=== PATIENT | female | born 1960 | race American Indian/Alaskan Native ===

== ENCOUNTER → 2016-10-09 | Outpatient (CLI) | payer BC, OTHER ==
--- NOTE | 2016-10-09 16:03 | CR ---
EXAMINATION: Left knee HISTORY: Pain COMPARISON: 12/24/2013 TECHNIQUE: 3 views FINDINGS/IMPRESSION: Left total knee hardware is demonstrated in stable position and alignment. No f racture or acute osseous abnormalities noted. Bone mineralization otherwise appears normal.
== END ==
LOC: MW.CHORTHO 13:46
PROVIDERS: ATTEND Physician Assistant
DX: M25.562 Pain in left knee (principal); Z96.7 Presence of other bone and tendon implants
CPT/HCPCS: 73562-26-LT; 73562-LT

== ENCOUNTER → 2016-10-16 | Outpatient (CLI) | payer BC, OTHER | END | disposition home or self-care (01) | LOC: MW.CHORTHO 14:36 | PROVIDERS: ATTEND Physician Assistant | DX: T84.84XA Pain due to internal orthopedic prosthetic devices, implants and grafts, initial encounter (principal); Z96.659 Presence of unspecified artificial knee joint | CPT/HCPCS: 36415; 85025; 85652; 86140; 87070; 87205; 89050; 89060 ==

== ENCOUNTER 2018-10-08 09:47 | Day surgery (SDC) | payer BC, OTHER ==
[~2018-10-08 09:47] MED LIST: Acetaminophen/HYDROcodone 325-5 MG Tab PO PRN; Lactated Ringers 1,000 ML IV SCH; Lidocaine 1% 20 ML MDV ONE; ceFAZolin 2 GM in Premix Bag 1 BAG IV SCH
--- NOTE | 2018-10-08 11:22 | PCM.PREANE ---
Preanesthetic Assessment - Anesthesia/Transfusion/Family Hx Anesthesia History: Prior Anesthesia Without Reaction Other Type of Anesthesia Reaction Comment: Denies any known problems Family History of Anesthesia Reaction: No Transfusion History: No Prior Transfusion(s) - Review of Systems General: No Symptoms Pulmonary: No Symptoms Cardiovascular: No Symptoms Gastrointestinal: No Symptoms Neurological: No Symptoms Other: Reports: None - Physical Assessment NPO Status Date: 10/07/18 Height: 5 ft 5 in Weight: 83.915 kg ASA Class: 2 Mental Status: Alert & Oriented x3 Airway Class: Mallampati = 2 Dentition: Reports: Normal Dentition ROM/Head Extension: Full Lungs: Clear to Auscultation, Normal Respiratory Effort Cardiovascular: Regular Rate, Regular Rhythm - Allergies Allergies/Adverse Reactions: Allergies Allergy/AdvReac Type Severity Reaction Status Date / Time aspirin Allergy Rash Verified 10/02/18 12:56 ibuprofen Allergy Rash Verified 10/02/18 12:56 latex Allergy Rash Verified 10/02/18 12:56 - Blood Blood Available: No - Anesthesia Plan Pre-Op Medication Ordered: None - Acknowledgements Anesthesia Type Planned: General Anesthesia Pt an Appropriate Candidate for the Planned Anesthesia: Yes Alternatives and Risks of Anesthesia Discussed w Pt/Guardian: Yes Pt/Guardian Understands and Agrees with Anesthesia Plan: Yes Additional Comments: PMH: gerd, smoker PLAN: ga-lma PreAnesthesia Questionnaire HEENT History: Reports: None Cardiovascular History: Reports: None Respiratory History: Reports: None Gastrointestinal History: Reports: GERD Genitourinary History: Reports: None 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: Musculoskeletal History: Reports: Osteoarthritis Neurological History: Reports: None Psychiatric History: Reports: None Endocrine/Metabolic History: Reports: None Hematologic History: Reports: None Immunologic History: Reports: None Oncologic (Cancer) History: Reports: None Dermatologic History: Reports: None - Past Surgical History Head Surgeries/Procedures: Reports: None HEENT Surgical History: Reports: LASIK, Tonsillectomy Cardiovascular Surgical History: Reports: None Respiratory Surgical History: Reports: None GI Surgical History: Reports: Cholecystectomy Female Surgical History: Reports: Breast Biopsy, Cystectomy, Hysterectomy, Tubal Ligation, Other (See Below) Other Female Surgeries/Procedures: bladder surgery Endocrine Surgical History: Reports: None Neurological Surgical History: Reports: None Musculoskeletal Surgical History: Reports: Arthroscopic Knee, Knee Replacement, Shoulder Surgery, Other (See Below) Other Musculoskeletal Surgeries/Procedures:: bilateral bunionectomy, left knee scope, partial lt knee arthroplasty, left total knee arthroplasty, slick shoulder surgery Oncologic Surgical History: Reports: None - SUBSTANCE USE Smoking Status *Q: Current Every Day Smoker Tobacco Use Within Last Twelve Months: Cigarettes Recreational Drug Use History: No - HOME MEDS Home Medications: Home Meds Estradiol 2 mg PO DAILY 04/23/16 [History] Omeprazole 20 mg PO DAILY 04/23/16 [History] - CURRENT (IN HOUSE) MEDS Current Meds: Current Medications Hydrocodone Bitart/Acetaminophen ([place] 325-5 Mg) 1 - 2 tab PO Q4H PRN PRN Reason: Pain Cefazolin Sodium/Dextrose 2 gm (/ Premix) 50 mls @ 100 mls/hr IV ONCALL ROGER Lactated Ringer's (Ringers, Lactated) 1,000 mls @ 100 mls/hr IV ASDIRECTED ROGER Discontinued Medications Lidocaine HCl (Xylocaine 1%) Confirm Administered Dose 20 ml .ROUTE .STK-MED ONE Stop: 10/08/18 07:22
[2018-10-08] MEDS ORDERED: Dexamethasone 4 MG/ML 5 ML MDV ONE (11:29)
[2018-10-08] MEDS ORDERED: Ondansetron 4 MG/2 ML SDV ONE (11:29)
[2018-10-08] MEDS ORDERED: fentaNYL 250 MCG/5 ML SDV ONE (11:29)
[2018-10-08] MEDS ORDERED: Midazolam 1 MG/ML 2 ML SDV ONE (11:29)
[2018-10-08] MEDS ORDERED: Propofol 200 MG/20 ML SDV ONE (11:29)
[2018-10-08] MEDS ORDERED: ceFAZolin/Dextrose,Iso-Osmotic 2 GM/50 ML Duplex Bag IV ONE (11:31)
[2018-10-08] MEDS ORDERED: Rocuronium 100 MG/10 ML Syringe ONE (12:10)
[2018-10-08] MEDS ORDERED: fentaNYL 100 MCG/2 ML SDV IVPUSH PRN (13:31)
--- NOTE | 2018-10-08 13:58 | PCM.OPNOTE ---
- General Post-Op/Procedure Note Date of Surgery/Procedure: 10/08/18 Operative Procedure(s): R knee scope with PMM/PLM Post-Op Diagnosis: R knee med meniscus tear, discoid lateral meniscus Anesthesia Technique: General LMA Primary Surgeon: Liliana Gray Ocean Freight Agent: Annalisa Trimble in mLs: 5 Condition: Good Free Text/Narrative:: #[id number]
--- NOTE | 2018-10-08 14:34 | PCM.POSTAN ---
POST ANESTHESIA ASSESSMENT - MENTAL STATUS Mental Status: Alert, Oriented - RESPIRATORY Respiratory Status: Respiratory Rate WNL, Airway Patent, O2 Saturation Stable - CARDIOVASCULAR CV Status: Pulse Rate WNL, Blood Pressure Stable - GASTROINTESTINAL GI Status: No Symptoms - PAIN Pain Score: 0 - POST OP HYDRATION Hydration Status: Adequate & Stable
--- NOTE | 2018-10-08 14:48 | PCM48HPAN ---
Post Anesthesia Note - EVALUATION WITHIN 48HRS OF ANESTHETIC Vital Signs in Normal Range: Yes Patient Participated in Evaluation: Yes Respiratory Function Stable: Yes Airway Patent: Yes Cardiovascular Function Stable: Yes Hydration Status Stable: Yes Pain Control Satisfactory: Yes Nausea and Vomiting Control Satisfactory: Yes Mental Status Recovered: Yes Resp Rate: 11
[2018-10-08 16:24] VITALS: BP 123/75
--- NOTE | 2018-10-08 20:31 | OR ---
SURGEON: Liliana Gray MD DATE OF PROCEDURE: 10/08/2018 PREOPERATIVE DIAGNOSIS: Right knee medial meniscus tear. POSTOPERATIVE DIAGNOSES: 1. Right knee medial meniscus tear. 2. Right knee discoid lateral meniscus. 3. Degenerative joint disease, left knee. PROCEDURE: Right knee arthroscopy with partial medial and lateral meniscectomy. OILSEED MEAT PRESSER: MOOK Sim. ANESTHESIA: General. ESTIMATED BLOOD LOSS: 5 mL. TOURNIQUET TIME: See nursing record. COMPLICATIONS: None. DVT PROPHYLAXIS: Not indicated. IMPLANTS USED: None. BRIEF HISTORY: Lily is a 58-year-old female who has had complaint of progressive right knee pain. She had failed conservative treatment. Due to her lack of response to conservative treatment, I did recommend surgical intervention. The risks and goals of procedure were discussed with the patient and were documented preoperatively. She agreed to proceed. DESCRIPTION OF PROCEDURE: The patient was properly identified and brought to the operating room. She was transferred from the OR cart and placed on the operating table in supine position. General anesthesia was administered. After adequate anesthesia was obtained, a well-padded tourniquet was applied to the right lower extremity. The right lower extremity was then prepped in standard fashion using ChloraPrep solution. It was then sterilely draped. A time-out was performed to ensure correct site and procedure. Preoperative antibiotics were given. The surgical site had been marked preoperatively. An Esmarch was used to exsanguinate the right lower extremity and the tourniquet was inflated to 250 mmHg. A lateral portal arthrotomy was established. Blunt trocar and cannula were introduced into the suprapatellar pouch. Camera, inflow, and outflow were assembled. No significant synovitis was noted. The patellofemoral joint was visualized. Minor degenerative changes were noted along the undersurface of the patella. The trochlea did not show significant degenerative findings. There was some fat pad impingement present with flexion and extension of the knee. The patella appeared to track centrally. I then extended down the lateral gutter. No loose bodies were identified. She did have quite a bit of redundant fatty tissue and it was difficult to initially go down the medial gutter. I then entered the medial compartment. A medial portal arthrotomy was established. A blunt probe was inserted. She was found to have a large posterior horn tear of the meniscus. Using a combination of biters and shaver, this was resected back to a stable remnant. The remainder was probed and found to be stable. Joint surfaces showed diffuse grade 2 to grade 3 degenerative findings along the medial femoral condyle and medial tibial plateau. I then entered the notch. Both the ACL and PCL were visualized and probed and found to be intact. I then entered the lateral compartment. She was found to have a large discoid meniscus. This was probed and no tears were noted. I elected to proceed with saucerization of the meniscus. Using a combination of biters and shaver, saucerization of the lateral meniscus was performed. The joint surfaces showed no significant degenerative findings. I then returned to the patellofemoral joint. A portion of the fat pad was excised and no further impingement was noted. By removing a portion of the fat pad, I was able to visualize the medial gutter and no loose bodies were identified. The instruments were then removed from the knee. The portal sites were closed with 3-0 nylon. 1% Lidocaine was injected along the portal tracts. Xeroform gauze was placed over the wound and a bulky dressing was applied. The tourniquet was then deflated. She was awakened from her anesthetic and transferred back to the operating room cart. She was brought to recovery room in stable condition. All needle and sponge counts were correct. FUNMILAYO / HANNAH /[id number]
== END 2018-10-08 16:00 | disposition home or self-care (01) ==
LOC: MW.SDS 09:47
PROVIDERS: ATTEND Orthopaedic Surgery
DX: S83.231A Complex tear of medial meniscus, current injury, right knee, initial encounter (principal); M23.300 Other meniscus derangements, unspecified lateral meniscus, right knee; M25.861 Other specified joint disorders, right knee; M17.11 Unilateral primary osteoarthritis, right knee; M25.461 Effusion, right knee; K21.9 Gastro-esophageal reflux disease without esophagitis; K64.9 Unspecified hemorrhoids; F17.210 Nicotine dependence, cigarettes, uncomplicated; X58.XXXA Exposure to other specified factors, initial encounter; Z88.6 Allergy status to analgesic agent; Z91.040 Latex allergy status; Z79.1 Long term (current) use of non-steroidal anti-inflammatories (NSAID); Z79.899 Other long term (current) drug therapy
CPT/HCPCS: 29880; 88304; J0131; J0330; J0690; J1100; J2001; J2250; J2405; J2704; J3010; J7120; 01400

== ENCOUNTER 2019-01-12 06:30 | Day surgery (SDC) | payer BC, OTHER ==
[~2019-01-12 06:30] MED LIST changes: -Acetaminophen/HYDROcodone 325-5 MG Tab PO PRN; -Lidocaine 1% 20 ML MDV ONE; -ceFAZolin 2 GM in Premix Bag 1 BAG IV SCH
--- NOTE | 2019-01-12 07:02 | PCM.PREANE ---
Preanesthetic Assessment - Anesthesia/Transfusion/Family Hx Anesthesia History: Prior Anesthesia Without Reaction Other Type of Anesthesia Reaction Comment: Denies any known problems Family History of Anesthesia Reaction: No Transfusion History: No Prior Transfusion(s) - Review of Systems General: No Symptoms Pulmonary: No Symptoms Cardiovascular: No Symptoms Gastrointestinal: No Symptoms Neurological: No Symptoms Other: Reports: None - Physical Assessment NPO Status Date: 01/11/19 Height: 5 ft 5 in Weight: 81.647 kg ASA Class: 2 Mental Status: Alert & Oriented x3 Airway Class: Mallampati = 2 Dentition: Reports: Normal Dentition ROM/Head Extension: Full Lungs: Clear to Auscultation, Normal Respiratory Effort Cardiovascular: Regular Rate, Regular Rhythm - Allergies Allergies/Adverse Reactions: Allergies Allergy/AdvReac Type Severity Reaction Status Date / Time aspirin Allergy Rash Verified 01/05/19 14:34 ibuprofen Allergy Rash Verified 01/05/19 14:34 latex Allergy Rash Verified 01/05/19 14:34 - Blood Blood Available: No - Anesthesia Plan Pre-Op Medication Ordered: None - Acknowledgements Anesthesia Type Planned: General Anesthesia Pt an Appropriate Candidate for the Planned Anesthesia: Yes Alternatives and Risks of Anesthesia Discussed w Pt/Guardian: Yes Pt/Guardian Understands and Agrees with Anesthesia Plan: Yes Additional Comments: PMH: gerd, smoker, sridhar hives from Ibuprofen, but has been able to take toradol and naprosyn without problem PLAN: ga/lma PreAnesthesia Questionnaire - Past Health History Medical/Surgical History: Denies Medical/Surgical History HEENT History: Reports: None Cardiovascular History: Reports: None Respiratory History: Reports: None Gastrointestinal History: Reports: GERD Genitourinary History: Reports: None 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: Musculoskeletal History: Reports: Osteoarthritis Neurological History: Reports: None Psychiatric History: Reports: None Endocrine/Metabolic History: Reports: None Hematologic History: Reports: None Immunologic History: Reports: None Oncologic (Cancer) History: Reports: None Dermatologic History: Reports: None - Past Surgical History Head Surgeries/Procedures: Reports: None HEENT Surgical History: Reports: LASIK, Tonsillectomy Cardiovascular Surgical History: Reports: None Respiratory Surgical History: Reports: None GI Surgical History: Reports: Cholecystectomy Female Surgical History: Reports: Breast Biopsy, Cystectomy, Hysterectomy, Tubal Ligation, Other (See Below) Other Female Surgeries/Procedures: bladder surgery Endocrine Surgical History: Reports: None Neurological Surgical History: Reports: None Musculoskeletal Surgical History: Reports: Arthroscopic Knee, Knee Replacement, Shoulder Surgery, Other (See Below) Other Musculoskeletal Surgeries/Procedures:: bilateral bunionectomy, left knee scope, partial lt knee arthroplasty, left total knee arthroplasty, slick shoulder surgery Oncologic Surgical History: Reports: None - SUBSTANCE USE Smoking Status *Q: Current Every Day Smoker Tobacco Use Within Last Twelve Months: Cigarettes Recreational Drug Use History: No - HOME MEDS Home Medications: Home Meds Estradiol 2 mg PO DAILY 04/23/16 [History] Omeprazole 20 mg PO DAILY 04/23/16 [History] Diclofenac Sodium 5 mg PO ASDIRECTED PRN 01/05/19 [History] Meloxicam 15 mg PO DAILY 01/05/19 [History] - CURRENT (IN HOUSE) MEDS Current Meds: Current Medications Hydrocodone Bitart/Acetaminophen ([place] 325-5 Mg) 1 - 2 tab PO Q4H PRN PRN Reason: Pain Cefazolin Sodium/Dextrose 2 gm (/ Premix) 50 mls @ 100 mls/hr IV ONCALL ROGER Lactated Ringer's (Ringers, Lactated) 1,000 mls @ 100 mls/hr IV ASDIRECTED [facility]
[2019-01-12] MEDS ORDERED: Lidocaine 2% 5 ML SDV ONE (07:16)
[2019-01-12] MEDS ORDERED: Ketorolac 30 MG/ML SDV ONE (07:16)
[2019-01-12] MEDS ORDERED: Ondansetron 4 MG/2 ML SDV ONE (07:16)
[2019-01-12] MEDS ORDERED: Glycopyrrolate 0.2 MG/ML SDV ONE (07:16)
[2019-01-12] MEDS ORDERED: Dexamethasone 4 MG/ML 5 ML MDV ONE (07:16)
[2019-01-12] MEDS ORDERED: ceFAZolin 1 GM Vial ONE (07:16)
[2019-01-12] MEDS ORDERED: Sodium Chloride 0.9% 20 ML ONE (07:16)
[2019-01-12] MEDS ORDERED: Propofol 200 MG/20 ML SDV ONE (07:20)
[2019-01-12] MEDS ORDERED: fentaNYL 100 MCG/2 ML SDV ONE (07:20)
[2019-01-12] MEDS ORDERED: Midazolam 1 MG/ML 2 ML SDV ONE (07:20)
[2019-01-12] MEDS ORDERED: Lidocaine 1% 20 ML MDV ONE (07:22)
[2019-01-12] MEDS ORDERED: ceFAZolin 2 GM in Premix Bag 1 BAG IV SCH (08:00)
--- NOTE | 2019-01-12 08:58 | PCM.OPNOTE ---
- General Post-Op/Procedure Note Date of Surgery/Procedure: 01/12/19 Operative Procedure(s): R knee arthroscopy with PLM/PMM and microfracture medial femoral condyle Post-Op Diagnosis: R knee med/lat meniscus tear, djd R knee Anesthesia Technique: General LMA Primary Surgeon: Liliana Gray Corset Fitter: Lilian John in mLs: 5 Condition: Good Free Text/Narrative:: #[id number]
[2019-01-12] MEDS ORDERED: HYDROmorphone 2 MG/ML SDV IVPUSH ONE (09:22)
[2019-01-12] MEDS ORDERED: HYDROmorphone 2 MG/ML Syringe ONE (09:26)
--- NOTE | 2019-01-12 09:47 | PCM.POSTAN ---
POST ANESTHESIA ASSESSMENT - MENTAL STATUS Mental Status: Alert, Oriented - VITAL SIGNS Pulse Rate: 67 SaO2: 96 Resp Rate: 13 Blood Pressure: 109/63 - RESPIRATORY Respiratory Status: Respiratory Rate WNL, Airway Patent, O2 Saturation Stable - CARDIOVASCULAR CV Status: Pulse Rate WNL, Blood Pressure Stable - GASTROINTESTINAL GI Status: No Symptoms - PAIN Pain Score: 0 - POST OP HYDRATION Hydration Status: Adequate & Stable
[2019-01-12] MEDS ORDERED: Acetaminophen/HYDROcodone 325-5 MG Tab PO PRN (10:00)
[2019-01-12 11:49] VITALS: BP 109/63
--- NOTE | 2019-01-12 11:49 | PCM48HPAN ---
Post Anesthesia Note - EVALUATION WITHIN 48HRS OF ANESTHETIC Vital Signs in Normal Range: Yes Patient Participated in Evaluation: Yes Respiratory Function Stable: Yes Airway Patent: Yes Cardiovascular Function Stable: Yes Hydration Status Stable: Yes Pain Control Satisfactory: Yes Nausea and Vomiting Control Satisfactory: Yes Mental Status Recovered: Yes Pulse Rate: 67 Resp Rate: 14 Blood Pressure: 109/63
--- NOTE | 2019-01-12 13:40 | OR ---
SURGEON: Liliana Gray MD DATE OF PROCEDURE: 01/12/2019 PREOPERATIVE DIAGNOSES: 1. Right knee medial meniscus tear. 2. Osteoarthritis, right knee. POSTOPERATIVE DIAGNOSES: 1. Right knee medial meniscus tear. 2. Osteoarthritis, right knee. 3. Right knee lateral meniscus tear. PROCEDURES: Right knee arthroscopy with partial medial and lateral meniscectomies and microfracture of the medial femoral condyle. PRIMARY SURGEON: Liliana Gray MD. ROLL SKINNER: Lilian John PA-C. ANESTHESIA: General. ESTIMATED BLOOD LOSS: 5 mL. TOURNIQUET TIME: 19 minutes. COMPLICATIONS: None. DVT PROPHYLAXIS: Not indicated. IMPLANTS USED: None. BRIEF HISTORY: Lily is a 58-year-old female, who has had continued difficulties with her right knee. She has previously undergone a right knee arthroscopy. She did well following the surgery. She recently had an episode where she developed increased pain in the right knee. We did then try a diagnostic/therapeutic injection, which did give her good temporary relief. Her pain has since recurred. Due to her lack of response to conservative treatment, I did recommend surgical intervention. The risks and goals of procedure were discussed with the patient and were documented preoperatively. She agreed to proceed. DESCRIPTION OF PROCEDURE: The patient was properly identified and brought to the operating room. She was transferred from the OR cart and placed on the operating room table in supine position. General anesthesia was administered. After adequate anesthesia was obtained, a well-padded tourniquet was applied to the right lower extremity. The right lower extremity was then prepped in standard fashion using ChloraPrep solution. It was then sterilely draped. A time-out was performed to ensure correct site and procedure. Preoperative antibiotics were given. Surgical site had been marked preoperatively. An Esmarch was used to exsanguinate the right lower extremity and the tourniquet was inflated to 250 mmHg. A lateral portal arthrotomy was made through the site of the previous incision. Blunt trocar and cannula were introduced into the suprapatellar pouch. Camera, inflow, and outflow were assembled. No significant synovitis was noted. The patellofemoral joint was visualized. Minor degenerative changes were noted. The patella appeared to track centrally. I then extended down the lateral and medial gutter. No loose bodies were identified. I then entered the medial compartment. A medial portal arthrotomy was established through the site of the previous incision. A blunt probe was inserted. The meniscus was probed. She was found to have a radial tear along the medial aspect of the medial meniscus. Degenerative fraying was noted posteriorly as well. Using a combination of biters and shaver, this was resected back to a stable remnant. The remaining rim was quite thin, however, it was probed and found to be stable. Diffuse grade 3 degenerative changes were noted on the medial tibial plateau. The medial femoral condyle showed similar findings. However, there was an area measuring approximately 10 mm x 10 mm over the far medial aspect of the medial femoral condyle, which did show grade 4 chondromalacia. I elected to microfracture this area to stimulate some bleeding. I then entered the notch. Both the ACL and PCL were visualized and probed and found to be intact. I then entered the lateral compartment. Degenerative fraying was noted along the central portion of the lateral meniscus. Using a combination of biters and shaver, this was resected back to a stable remnant. The popliteus was visualized. There was some mobility to the remaining meniscus, however, the attachment sites appeared intact. Diffuse grade 2 to grade 3 degenerative changes were also noted in this compartment. I then returned to the medial compartment. A microfracture awl was used to perform the microfracture over the area of grade 4 chondromalacia. The tourniquet was then deflated, and I was able to visualize bleeding from the microfracture sites. Instruments were then removed from the knee. The portal sites were closed with 3-0 nylon. 1% lidocaine was injected along the portal tracts. Xeroform gauze was placed over the wounds and a bulky dressing was then applied. The patient was awakened from her anesthetic and transferred back to the operating room cart. She was brought to recovery room in stable condition. All needle and sponge counts were correct. FUNMILAYO / HANNAH /[id number]
== END 2019-01-12 10:51 | disposition home or self-care (01) ==
LOC: MW.SDS 06:30
PROVIDERS: ATTEND Orthopaedic Surgery
DX: S83.241A Other tear of medial meniscus, current injury, right knee, initial encounter (principal); S83.281A Other tear of lateral meniscus, current injury, right knee, initial encounter; M17.11 Unilateral primary osteoarthritis, right knee; K21.9 Gastro-esophageal reflux disease without esophagitis; K64.9 Unspecified hemorrhoids; F17.210 Nicotine dependence, cigarettes, uncomplicated; Z79.899 Other long term (current) drug therapy; Z79.890 Hormone replacement therapy; Z79.1 Long term (current) use of non-steroidal anti-inflammatories (NSAID); Z88.6 Allergy status to analgesic agent; Z91.040 Latex allergy status; Z98.890 Other specified postprocedural states
CPT/HCPCS: 29879; 29880; J0690; J1100; J1170; J1885; J2001; J2250; J2405; J2704; J3010; J3490; J7120; 01400